=== PATIENT | female | born 2000 | race Caucasian/White ===

== ENCOUNTER 2022-05-03 19:37 | Emergency (ER) | payer OTHER ==
[~2022-05-03] VITALS: Ht 162.5 cm; Wt 59.0 kg
[2022-05-03] MEDS ORDERED: JUNEL 1 MG-201 EACH PO (19:47)
[2022-05-03] MEDS ORDERED: AMOXICILLIN875 MG PO (20:04)
== END 2022-05-03 20:33 | disposition home or self-care (01) ==
LOC: ED 19:37
DX: H66.91 Otitis media, unspecified, right ear (principal)

== ENCOUNTER 2023-05-10 18:23 | Emergency (ER) | payer OTHER ==
[~2023-05-10] VITALS: Ht 160 cm; Wt 61.2 kg
[~2023-05-10 18:23] MED LIST: AMOXICILLIN875 MG PO; JUNEL 1 MG-201 EACH PO
[2023-05-10] MEDS ORDERED: PREDNISONE20 M1 PO (18:40)
== END 2023-05-10 18:47 | disposition home or self-care (01) ==
LOC: ED 18:23
DX: L23.7 Allergic contact dermatitis due to plants, except food (principal); Z79.899 Other long term (current) drug therapy

== ENCOUNTER 2023-08-27 18:01 | Emergency (ER) | payer OTHER ==
[~2023-08-27] VITALS: Ht 160 cm; Wt 63.5 kg
[~2023-08-27 18:01] MED LIST changes: +PREDNISONE20 M1 PO
[2023-08-27] MEDS ORDERED: Nizoral 2%15 GM T (18:41)
== END 2023-08-27 18:52 | disposition home or self-care (01) ==
LOC: ED 18:01
DX: B35.4 Tinea corporis (principal)